=== PATIENT | female | born 1960 | race Caucasian/White ===

== ENCOUNTER → 2017-12-04 | Outpatient (CLI) | payer BC ==
[~2017-12-04] VITALS: Ht 160 cm; Wt 65.8 kg
[~2017-12-04] MED LIST: ALEVE220 M2 PO; BIOTIN10000 MC1 PO; CITRACAL D + H1 EACH PO; ERGOCALCIF50000 UNIT PO; LAMISIL250 MG PO; MULTIPLE VITAM1 EACH PO; NEXIUM40 MG PO; TYLENOL EXTRA500 MG PO; YUVAFEM10 MCG VG; ZANTAC300 MG PO; ZYRTEC10 M3 PO
== END | disposition home or self-care (01) ==
LOC: AMB 08:23
PROC: 0DB68ZX Excision of Stomach, Via Natural or Artificial Opening Endoscopic, Diagnostic (ICD-10-PCS; principal; 2017-12-04)
DX: K29.60 Other gastritis without bleeding (principal); K44.9 Diaphragmatic hernia without obstruction or gangrene; K21.9 Gastro-esophageal reflux disease without esophagitis; Z88.0 Allergy status to penicillin
CPT/HCPCS: 88305; 88342 TC